=== PATIENT | female | born 1960 | race Caucasian/White ===

== ENCOUNTER → 2023-06-18 13:10 | Outpatient (REF) | payer OTHER, SELFPAY | LOC: MRI 3T 13:10 | PROVIDERS: ATTENDING PHYSICIAN Specialist; FAMILY PHYSICIAN Family Medicine | DX: M25.511 Pain in right shoulder (principal) | CPT/HCPCS: 73221 ==

== ENCOUNTER 2023-11-24 14:53 | Emergency (ER) | payer OTHER, SELFPAY ==
[2023-11-24 14:59] VITALS: BP 161/82
--- NOTE | 2023-11-24 15:34 | ED.GENMED ---
History of Present Illness
<Vinita Valladares PA-C - Last Filed: 11/24/23 18:21>
General
Chief Complaint: Skin Problem
Source: patient
Exam Limitations: none
Time Seen by Provider: 11/24/23 15:33
Nursing documentation reviewed up to this point in time: agreed with
History of Present Illness
History of Present Illness:
62-year-old female with a past medical history of COPD, hypertension, hyperlipidemia, diabetes presents emergency department today with a wound on her lower abdomen. Patient reports that this wound has been present since October. Patient states
that it started as a abscess with surrounding cellulitis. She is subsequently put on clarithromycin and states that seem to get a bit better but then it came back and the wound was incised and drained twice. She was then put on Bactrim. Patient
states that wound culture was taken at the time but then her symptoms persisted. Patient was sent to the emergency department today by her nurse practitioner who feels that patient has been failing outpatient therapy. Patient denies any nausea or
vomiting, abdominal pain, any fevers or chills. Patient has no allergies to any antibiotics. Patient follows with plan send family practice
Past History
<Vinita Valladares PA-C - Last Filed: 11/24/23 18:21>
Past History
ED Past Medical History: Cancer (Kidney), COPD, HTN, Hypercholesterolemia, NIDDM, Other (Adrenal tumor) and Other (Other kidney cancer)
ED Past Surgical History: and Urological (Kidney resection)
Social History
Tobacco: Former smoker
Alcohol: None
Drug: None
Personal:
Living: with family
Employment: Disabled
Family History
Family History: Other
Review of Systems
<Vinita Valladares PA-C - Last Filed: 11/24/23 18:21>
Review of Systems
All Other Systems: ROS reviewed and negative except as documented in HPI and ROS
Phy Exam
<Vinita Valladares PA-C - Last Filed: 11/24/23 18:21>
Physical Exam
Physical Exam:
General: Patient is well appearing and in no acute distress; non-toxic
Skin: Warm and dry, there is an indurated area to the right lower abdomen with no significant surrounding cellulitis with 1.5 cm incision site with serosanguineous drainage.
Head: Normocephalic, atraumatic
Eyes: Sclera non-icteric. EOMs intact. PERRLA.
Cardiac: Regular rate
Pulm: Normal respiratory effort
Abdomen: No abdominal tenderness
Neuro: CN II-XII intact, no focal neurologic deficits.
Psychiatric: Appropriate mood and affect.
Course
<JESUS Gil Last Filed: 11/24/23 18:21>
Orders/Labs/Results
Orders:
Orders
11/24/23 16:17
Complete Blood Count/With Diff Urgent
Comprehensive Metabolic Panel Urgent
Abnormal Lab Results
11/24/23
16:17
Abs Immat Gran (auto) 0.1 H 10^3/uL
(0-0.05)
Absolute Neuts (auto) 7.7 H 10^3/uL
(1.4-6.5)
Absolute Monos (auto) 0.8 H 10^3/uL
(0.1-0.6)
Immature Gran % 0.8 H %
(0-0.5)
Lymphocytes % 16.3 L %
(20.5-51.1)
Carbon Dioxide 16 L mmol/L
(22-30)
BUN 27 H mg/dl
(7-17)
Glucose 187 H mg/dl
(70-99)
11/24/23 16:17
11/24/23 16:17
Vital Signs
Initial and Last Documented VS:
Initial Vital Signs
Temp Pulse Resp BP Pulse Ox
99 F 102 18 161/82 94
11/24/23 14:59 11/24/23 14:59 11/24/23 14:59 11/24/23 14:59 11/24/23 14:59
Last Documented Vital Signs
Temp Pulse Resp BP Pulse Ox
99 F 88 18 158/88 98
11/24/23 14:59 11/24/23 18:04 11/24/23 18:04 11/24/23 18:04 11/24/23 18:04
<Francisco Russell MD - Last Filed: 11/24/23 17:35>
Orders/Labs/Results
Orders:
Orders
11/24/23 16:17
Complete Blood Count/With Diff Urgent
Comprehensive Metabolic Panel Urgent
Abnormal Lab Results
11/24/23
16:17
Abs Immat Gran (auto) 0.1 H 10^3/uL
(0-0.05)
Absolute Neuts (auto) 7.7 H 10^3/uL
(1.4-6.5)
Absolute Monos (auto) 0.8 H 10^3/uL
(0.1-0.6)
Immature Gran % 0.8 H %
(0-0.5)
Lymphocytes % 16.3 L %
(20.5-51.1)
Carbon Dioxide 16 L mmol/L
(22-30)
BUN 27 H mg/dl
(7-17)
Glucose 187 H mg/dl
(70-99)
11/24/23 16:17
11/24/23 16:17
Vital Signs
Initial and Last Documented VS:
Initial Vital Signs
Temp Pulse Resp BP Pulse Ox
99 F 102 18 161/82 94
11/24/23 14:59 11/24/23 14:59 11/24/23 14:59 11/24/23 14:59 11/24/23 14:59
Last Documented Vital Signs
Temp Pulse Resp BP Pulse Ox
99 F 88 18 158/88 98
11/24/23 14:59 11/24/23 18:04 11/24/23 18:04 11/24/23 18:04 11/24/23 18:04
<Vinita Valladares PA-C - Last Filed: 11/24/23 18:21>
MDM/Problems Addressed
Differential Diagnosis Includes:
Differentials include cellulitis, abscess, erysipelas, contact dermatitis
MDM/Problems Addressed:
62-year-old female with a past medical history of diabetes presents emergency department today with recurrent abscess on her lower abdomen. Is been incised and drained twice. She was on clarithromycin and Bactrim. She has had no fevers or chills
or other systemic signs or symptoms. Here today in emergency department, her vitals are stable, she is afebrile. Her CBC does not reveal leukocytosis, her CMP reveals isolated elevation BUN. Her potassium is normal. I was able to obtain records
from her family practice visit and was able to obtain the wound culture results which reveals prevotella species which is an anaerobic bacteria which is not susceptible to the Bactrim. Considering this, patient will be placed on Flagyl to cover for
this bacteria. Return precautions discussed. Follow-up with PCP emphasized. Wound has been draining appropriately, no indication for further right ND. Patient stable for discharge
Chronic conditions affecting care:
Diabetes, hypertension, hyperlipidemia
<Vinita Valladares PA-C - Last Filed: 11/24/23 18:21>
*Pulse Oximetry
Patient hypoxic: no
*Critical Care Note
Total Time (30-74mins, 75-104mins- exclusive of procedures): Not Applicable
Data Reviewed
Review of Other/Old Records Reveals: Records (Reviewed reviewed previous ER physician documentation from 07/04/2023 patient was seen for grace, no previous ER physician documentation regarding wounds) and Other (Reviewed faxed outpatient wound
culture and family practice report or patient was seen for wound and reviewed wound culture)
Source: patient and records
Prescriptions/Medications Considered But Not Given:
n/a
Further Testing Considered But Not Given:
n/a
<Vinita Valladares PA-C - Last Filed: 11/24/23 18:21>
Patient Management
Escalation/DeEscalation of care consider admission/obs:
Admit not indicated, patient stable for discharge
ED Attending Note
<Vinita Valladares PA-C - Last Filed: 11/24/23 18:21>
-
Portions of this chart may have been created with voice recognition software.� Occasional wrong word or��sound alike� substitutions may have occurred due to the inherent limitations of voice recognition software.
<Francisco Russell MD - Last Filed: 11/24/23 17:35>
ED Attending Note
ED Attending Note:
I saw and evaluated patient independently. Abscess status post I&D does not appear significantly infected. There is mild induration surrounding it but no streaking or significant warmth or erythema. Will start on appropriate oral antibiotics for
species that was isolated. Instructed to follow-up with her primary doctor for wound recheck as soon as possible
Discharge Plan
Departure
Patient Disposition: Home (Routine Discharge)
Date of Disposition: 11/24/23
Time of Disposition: 17:28
Patient with high blood pressure during this ER visit?: Yes
Condition: Good
Discharge Problem:
Cellulitis and abscess of other specified site
Instructions: Wound Care (DC), Cellulitis (Skin Infection), Adult (DC), BLOOD PRESSURE
Prescriptions:
New
metronidazole 500 mg tablet
500 mg PO Q8H 5 Days Qty: 15 0RF
No Action
albuterol sulfate [ProAir HFA] 8.5 GM HFA aerosol inhaler
Vitamin D
acetaminophen 325 MG tablet
650 mg PO Q6HPRN PRN (Reason: mild pain) 0RF
insulin glargine [Lantus U-100 Insulin] 1,000 UNITS/10 ML solution
26 units SC HS 0RF
diphenhydramine HCl [Banophen] 50 MG capsule
50 mg PO HS 0RF
miconazole nitrate [Miconazorb AF] 1 APPLIC powder
1 applic topical BID 0RF
diphenhydramine HCl [Banophen] 25 MG capsule
25 mg PO Q4HPRN PRN (Reason: anxiety) 0RF
lisinopril 10 MG tablet
10 mg PO DAILY 0RF
insulin aspart U-100 [Novolog FlexPen U-100 Insulin] 300 UNITS/3 ML insulin pen
0 units SC AC 0RF
insulin aspart U-100 [Novolog FlexPen U-100 Insulin] 300 UNITS/3 ML insulin pen
18 units SC AC 0RF
asenapine maleate 5 MG tablet, sublingual
10 mg sublingual HS 0RF
Referrals:
Sixto Vásquez MD [Family Provider] -
Activity Restrictions/Additional Instructions:
Please change her dressing once daily. Please stop taking the Bactrim. Your wound culture results demonstrate that you are growing a bacteria that is most susceptible to an antibiotic called metronidazole (Flagyl). Please start taking 1 tablet
every 8 hours for 5 days.
Please return to emergency department should you develop fevers or chills, nausea or vomiting, abdominal pain, chest pain or shortness of breath, or any other signs or symptoms concerning to you.
Please follow-up with your primary care provider.
Interventions
Interventions:
*Risk Screen - Suicide Last Done: 11/24/23 15:01
*General Assessment Last Done: 11/24/23 15:01
*Neglect/Abuse Screening Last Done: 11/24/23 15:01
*Nursing Disposition Last Done: 11/24/23 18:07
ED-Skin Assessment Last Done: 11/24/23 18:04
Discharge Date and Time
Discharge Date/Time: 11/24/23 18:09
Print Language: MALTESE
[2023-11-24 16:28] LABS: % Basophils 1.1 % (0-2); % Eosinophils 3.1 % (0-6); % Immature Granulocytes 0.8 % (0-0.5); % Lymphocytes 16.3 % (20.5-51.1); % Monocytes 7.2 % (1.7-9.3); % Neutrophils 71.5 % (42.2-75.2); Absolute Basophils 0.1 10^3/uL (0-0.2); Absolute Eosinophils 0.3 10^3/uL (0-0.7); Absolute Immature Granulocytes 0.1 10^3/uL (0-0.05); Absolute Lymphocytes 1.8 10^3/uL (1.2-3.4); Absolute Monocytes 0.8 10^3/uL (0.1-0.6); Absolute Neutrophils 7.7 10^3/uL (1.4-6.5); Hematocrit 41.3 % (37.0-47.0); Hemoglobin 14.7 g/dL (12.0-16.0); Mean Corp Hgb Conc. 35.6 g/dL (33.0-37.0); Mean Corpuscular Hgb 29.5 pg (27.0-31.0); Mean Corpuscular Volume 82.9 fL (81.0-99.0); Mean Platelet Volume 9.4 fL (7.4-10.4); Nucleated Red Blood Cells % 0 %; Platelet Count 309 10^3/uL (130-400); Red Blood Cell Count 4.98 10^6/uL (4.20-5.40); Red Cell Dist. Width 14.4 % (11.5-14.5); White Blood Cell Count 10.8 10^3/uL (4.8-10.8)
[2023-11-24 16:53] LABS: ALT (SGPT) 19 U/L (0-35); AST (SGOT) 21 U/L (14-36); Albumin 4.6 g/dl (3.5-5.0); Alkaline Phosphatase 104 U/L (38-126); Blood Urea Nitrogen 27 mg/dl (7-17); Calcium 9.5 mg/dl (8.4-10.2); Carbon Dioxide 16 mmol/L (22-30); Chloride 105 mmol/L (98-107); Glucose 187 mg/dl (70-99); Sodium 140 mmol/L (135-145); Total Bilirubin 0.4 mg/dl (0.2-1.3); Total Protein 7.5 g/dl (6.3-8.2); eGFR > 60.00
[2023-11-24 18:04] VITALS: BP 158/88
== END 2023-11-24 18:09 | disposition home or self-care (01) ==
LOC: EMR 14:53
PROVIDERS: Physician Assistant; EMERGENCY PHYSICIAN Emergency Medicine; FAMILY PHYSICIAN Family Medicine
DX: L02.211 Cutaneous abscess of abdominal wall (principal); L03.311 Cellulitis of abdominal wall; E11.9 Type 2 diabetes mellitus without complications; I10 Essential (primary) hypertension; E78.5 Hyperlipidemia, unspecified; J44.9 Chronic obstructive pulmonary disease, unspecified; Z85.528 Personal history of other malignant neoplasm of kidney; Z87.891 Personal history of nicotine dependence
CPT/HCPCS: 99283; 80053; 85025

== ENCOUNTER → 2024-01-03 11:35 | Outpatient (REF) | payer OTHER, SELFPAY | LOC: WDC 11:35 | PROVIDERS: ATTENDING PHYSICIAN Family Medicine Geriatric Medicine; FAMILY PHYSICIAN Family Medicine | DX: Z12.31 Encounter for screening mammogram for malignant neoplasm of breast (principal) | CPT/HCPCS: 77063; 77067 ==

== ENCOUNTER → 2024-01-28 09:54 | Outpatient (REF) | payer OTHER, SELFPAY | LOC: RCS 09:54 | PROVIDERS: ATTENDING PHYSICIAN Family Medicine; REFERRING PHYSICIAN Specialist | DX: R01.1 Cardiac murmur, unspecified (principal) | CPT/HCPCS: 93306 ==

== ENCOUNTER → 2024-06-25 09:36 | Outpatient (REF) | payer OTHER, SELFPAY | LOC: RAD 09:36 | PROVIDERS: ATTENDING PHYSICIAN Family Medicine | DX: M79.671 Pain in right foot (principal) | CPT/HCPCS: 73610; 73630 ==

== ENCOUNTER → 2024-07-31 12:59 | Outpatient (REF) | payer OTHER, SELFPAY | LOC: RCS 12:59 | PROVIDERS: ATTENDING PHYSICIAN Family Medicine | DX: I35.9 Nonrheumatic aortic valve disorder, unspecified (principal) | CPT/HCPCS: 93306 ==